=== PATIENT | male | born 1975 | race Caucasian/White ===

== ENCOUNTER 2017-11-05 13:24 | Emergency (ER) | payer BC ==
[~2017-11-05] VITALS: Ht 177.8 cm; Wt 99.8 kg
[~2017-11-05 13:24] MED LIST: CARAFATE 1 GM TA1 GM PO; PREVACID 24HR15 MG PO
[2017-11-05 14:07] LABS: ABSOLUTE BASOPHILS 0.1 thou/uL (0.0-0.2); ABSOLUTE EOSINOPHILS 0.1 thou/uL (0.0-0.7); ABSOLUTE LYMPHOCYTES 2.2 thou/uL (0.8-5.3); ABSOLUTE NEUTROPHILS 7.9 thou/uL (1.6-8.1); BASOPHILS 1.1 %; EOSINOPHILS 0.9 %; HEMOGLOBIN 16.1 gm/dL (14.0-18.0); LYMPHOCYTES 19.3 %; MCH 33.6 pg (26.0-34.0); MCHC 34.3 g/dL (28.0-37.0); MCV 97.7 fL (80.0-100.0); MONOCYTES 8.7 %; MPV 8.4 fl. (7.2-11.1); NUCLEATED RBCS 0 /100WBC; PLATELET COUNT* 305 thou/uL (150-400); RBC 4.81 mil/uL (4.50-6.00); RDW-CV 13.5 % (10.5-14.5); WBC 11.3 thou/uL (4.0-11.0)
[2017-11-05 14:11] LABS: URINE BLOOD NEGATIVE (Negative); URINE CLARITY CLEAR; URINE COLOR YELLOW; URINE GLUCOSE-RANDOM NEGATIVE (Negative); URINE KETONES TRACE (Negative); URINE LEUKOCYTES-REFLEX TRACE (Negative); URINE NITRITE-REFLEX NEGATIVE (Negative); URINE PROTEIN NEGATIVE (Negative); URINE SPECIFIC GRAVITY 1.015 (1.005-1.030); URINE UROBILINOGEN >= 8.0 E.U./dl (0.2-1.0)
[2017-11-05 14:13] LABS: CALCIUM 9.6 mg/dL (8.5-10.1); CREATININE 0.8 mg/dL (0.6-1.3); POTASSIUM 3.6 mmol/L (3.5-5.1)
[2017-11-05 14:13] LABS: URINE BILIRUBIN 1+ (Negative)
[2017-11-05 14:14] LABS: ICTOTEST (BILI CONFIRMATORY) Negative (Negative)
[2017-11-05 14:17] LABS: ALBUMIN 4.4 g/dL (3.4-5.0); TOTAL BILIRUBIN 3.7 mg/dL (<0.1-1.0); TOTAL PROTEIN 8.5 g/dL (6.4-8.2)
[2017-11-05 14:18] LABS: AMP/METHAMP Negative (Negative); BARBITURATES Negative (Negative); BENZODIAZEPINES Negative (Negative); COCAINE Negative (Negative); METHADONE Negative (Negative); OPIATES Negative (Negative); PCP Negative (Negative); THC Negative (Negative)
[2017-11-05 14:20] LABS: BACTERIA-REFLEX None Seen /HPF (None Seen); CASTS None Seen /LPF (None Seen); CRYSTALS None Seen /LPF (None Seen); MUCUS None Seen strn/LPF (None Seen); SQUAMOUS 0-3 Few /LPF (0-3); URINE RBC 0-2 Rare /HPF (0-2); URINE WBC-REFLEX 0-5 Rare /HPF (0-5)
[2017-11-05 15:47] VITALS: BP 145/85
--- NOTE | 2017-11-06 13:00 | EKG ---
[place] [address] ELECTROCARDIOGRAM REPORT Name: HAMZAH FARR [id number] Admission: 11/05/17 Attend Phys: Discharge: 11/05/17 Date of : 73 Report #: [id number] THIS REPORT FOR: //name// [facility] ED Test Date: 2017-11-05 Test Time: 14:11:18 Pat Name: HAMZAH FARR Department: Room: Gender: M [id number] Architect: NORMAN : 1975 Requested By: Mike Ty Order Number: [id number] MD: Valentin Nicole Measurements Intervals [place] Rate: 88 P: 23 KS: 145 QRS: 28 QRSD: 82 T: 24 QT: 375 QTc: 454 Interpretive Statements Sinus rhythm Baseline wander in lead(s) V3,V4,V5 Compared to ECG 04/18/2015 10:07:42 Left ventricular hypertrophy no longer present Electronically Signed On 11-06-2017 13:00:11 CDT by Valentin Nicole [email or web address] <ELECTRONICALLY SIGNED> By: Valentin Nicole MD, [facility] 11/06/[address] [facility] [place] 141 141 Valentin Nicole MD, FAC /EPI
== END 2017-11-05 15:49 ==
LOC: M.ERS 13:24
PROVIDERS: Nurse Practitioner Psychiatric/Mental Health
DX: K29.20 Alcoholic gastritis without bleeding (principal); F10.10 Alcohol abuse, uncomplicated